=== PATIENT | female | born 1990 | race Caucasian/White ===

== ENCOUNTER → 2016-11-22 | Outpatient (REF) | payer OTHER ==
[~2016-11-22] MED LIST: ACET50TA PO; IBUP80TA PO; SUBUTEX
== END ==
LOC: M LAB REF 16:49
PROVIDERS: ATTEND Specialist
DX: Z34.81 Encounter for supervision of other normal pregnancy, first trimester (principal)

== ENCOUNTER → 2016-12-21 | Outpatient (REF) | payer OTHER | LOC: M LAB REF 17:03 | PROVIDERS: ATTEND Advanced Practice Midwife | DX: Z34.82 Encounter for supervision of other normal pregnancy, second trimester (principal); Z36 Encounter for antenatal screening of mother; Z3A.00 Weeks of gestation of pregnancy not specified ==

== ENCOUNTER → 2017-01-31 | Outpatient (CLI) | payer BC, MEDICAID ==
--- NOTE | 2017-02-01 05:13 | REP ---
Clinical: Anatomical evaluation. Comparison: None . Findings: Examination demonstrates a single live intrauterine in breech presentation. motion is identified by technologist. Placenta is noted anteriorly and grade 0 without evidence for placenta previa or abruption. Amniotic fluid volume is normal. Cervix measures 3.2 cm in length and appears closed. No evidence for nuchal cord. Gestational age by LMP 20 weeks 3 days with BRITT 06/17/2017 . Gestational age by current measurements 20 weeks 2 days with BRITT 06/18/2017 . FHR equals 141 beats per minute. BPD 4.7 cm 20 weeks 1 day HC 17.9 cm 20 weeks 2 days AC 15.3 cm 20 weeks 4 days FL 3.4 cm 20 weeks 6 days HL 3.1 cm 20 weeks 2 days HC/AC ratio 1.17 Estimated weight 367 grams ( 54th percentile). Anatomical assessment demonstrates normal structures including cranium, choroid plexus, cavum, cerebellum/posterior fossa, lungs, diaphragm, stomach, cord insertion/three-vessel cord, kidneys/bladder, spine, and extremities. Impression: 1. Single live intrauterine in breech presentation demonstrating appropriate interval growth. 2. Limited evaluation of the facial features and heart/ventricular outflow tracts. Anatomical assessment is otherwise normal and complete. Signed by Romeo Granados MD 02/01/2017 05:04 A
== END ==
LOC: M RAD 11:31
PROVIDERS: ATTEND Specialist
DX: O32.1XX0 Maternal care for breech presentation, not applicable or unspecified (principal); Z36 Encounter for antenatal screening of mother; Z3A.20 20 weeks gestation of pregnancy

== ENCOUNTER → 2017-03-15 | Outpatient (CLI) | payer BC, MEDICAID | LOC: M SMT 13:32 | PROVIDERS: ATTEND Specialist | DX: Z34.82 Encounter for supervision of other normal pregnancy, second trimester (principal); Z36 Encounter for antenatal screening of mother; Z3A.26 26 weeks gestation of pregnancy ==

== ENCOUNTER → 2017-03-26 | Outpatient (CLI) | payer BC, MEDICAID ==
[2017-03-26 15:25] LABS: MEAN CORPUSCULAR HEMOGLOBIN 32.4 pg (27.0-33.0); MEAN CORPUSCULAR VOLUME 90.2 fl (80.0-96.0); RED CELL DISTRIBUTION WIDTH 13.7 % (11.5-14.5); WHITE BLOOD COUNT 6.2 K/mm3 (4.0-10.0)
[2017-03-29 10:17] LABS: BUPRENORPHINE FREE SERUM 6 ng/mL (1-10); NORBUPRENORPHINE FREE SERUM 2 ng/mL (Not Estab.)
== END ==
LOC: M LAB 13:37
PROVIDERS: ATTEND Obstetrics & Gynecology
DX: Z34.82 Encounter for supervision of other normal pregnancy, second trimester (principal); F11.20 Opioid dependence, uncomplicated
CPT/HCPCS: 36415; 80306; 82950; 85027; 86850; 86900; 86901; G0480

== ENCOUNTER → 2017-05-25 | Outpatient (REF) | payer BC, MEDICAID ==
[~2017-05-25] MED LIST changes: +PRENTAB9 PO; +SUBUTEX PO; +TUMS500C PO
== END ==
LOC: M LAB REF 13:19
PROVIDERS: ATTEND Advanced Practice Midwife
DX: Z34.83 Encounter for supervision of other normal pregnancy, third trimester (principal); Z36 Encounter for antenatal screening of mother; Z3A.00 Weeks of gestation of pregnancy not specified

== ENCOUNTER → 2017-06-12 | Outpatient (CLI) | payer BC, MEDICAID ==
--- NOTE | 2017-06-12 16:04 | REP ---
Clinical: Size discrepancy for growth re-evaluation. Comparison: 03/15/2017 . Findings: Examination demonstrates a single live intrauterine in cephalic presentation. motion is identified by technologist. Placenta is noted anteriorly and grade one without evidence for placenta previa or abruption. Amniotic fluid volume is normal. No evidence for nuchal cord. Gestational age by LMP 39 weeks 2 days with BRITT 06/17/2017 . Gestational age by current measurements 37 weeks 1 day with BRITT 07/02/2017 . FHR equals 124 beats per minute. BPD 9.0 36 weeks 2 days HC 33.7 38 weeks 4 days AC 34.3 38 weeks 2 days FL 7.2 36 weeks 6 days HC/AC ratio 0.98 Estimated weight 3292 grams ( 39th percentile). Impression: 1. Single live advanced gestation in cephalic presentation. Biometrical measurements suggest mildly decreased growth although estimated weight remains within normal range. 2. Amniotic fluid index within normal limits. Signed by Romeo Granados MD 06/12/2017 03:55 P
== END ==
LOC: M SMT 15:04
PROVIDERS: ATTEND Advanced Practice Midwife
DX: Z36 Encounter for antenatal screening of mother (principal); Z3A.37 37 weeks gestation of pregnancy

== ENCOUNTER 2017-06-25 14:53 | Inpatient (IN) | payer BC, MEDICAID ==
[~2017-06-25] VITALS: Ht 162.6 cm; Wt 58.2 kg
[~2017-06-25 14:53] MED LIST changes: -PRENTAB9 PO; -SUBUTEX PO; -TUMS500C PO
[2017-06-25 15:33] VITALS: BP 121/67
[2017-06-25 16:25] LABS: MEAN CORPUSCULAR HEMOGLOBIN 31.2 pg (27.0-33.0); MEAN CORPUSCULAR HGB CONC 35.4 g/dl (32.0-36.5); MEAN CORPUSCULAR VOLUME 87.9 fl (80.0-96.0); RED CELL DISTRIBUTION WIDTH 13.9 % (11.5-14.5); WHITE BLOOD COUNT 7.4 10^3/uL (4.0-10.0)
[2017-06-25] MEDS ORDERED: PRENTAB9 PO (16:38)
[2017-06-25] MEDS ORDERED: TUMS500C PO (16:38)
[2017-06-25] MEDS ORDERED: SUBUTEX PO (16:38)
[2017-06-25 17:32] VITALS: BP 108/67
[2017-06-25] MEDS ORDERED: LACTATED RINGER'S 1000 ML IV STA (18:01)
[2017-06-25] MEDS ORDERED: miSOPROStol 50 MCG 1/2 TAB (S0191) SL ONE ×2 (18:15→20:45)
[2017-06-25] MEDS: LR 1,000 ML IV SCH (18:51)
[2017-06-25 19:39] VITALS: BP 110/67
[2017-06-25] MEDS: BUPRENORPHINE 8MG TAB (PATIENT'S OWN MED) PO SCH (20:27)
[2017-06-25 20:34] VITALS: BP 119/68
[2017-06-25 21:42] VITALS: BP 107/58
[2017-06-25 22:07] VITALS: BP 104/56
[2017-06-26] VITALS (37 sets, daily range): BP systolic 97–143; BP diastolic 55–77
[2017-06-26] MEDS ORDERED: PROMETHAZINE INJ 25 MG/ML VIAL (J2550) IV ONE (03:15)
[2017-06-26] MEDS ORDERED: OXYTOCIN DRIP 30 UNITS in APPROPRIATE DILUENT 1 EA IV SCH ×2 (03:15→12:36)
[2017-06-26] MEDS ORDERED: BUTORPHANOL 2 MG/ML INJ (J0595) IV ONE (03:15)
[2017-06-26] MEDS: LR 1,000 ML IV SCH ×2 (03:17→09:07)
[2017-06-26] MEDS ORDERED: FENTANYL 2MCG/ML ROPIVACAINE 0.2% IN 0.9% NACL 200ML IVBAG As Ordered ONE (07:52)
[2017-06-26] MEDS: BUPRENORPHINE 8MG TAB (PATIENT'S OWN MED) PO SCH (08:50)
[2017-06-26] MEDS ORDERED: FENTANYL/ROPIVACAINE/NACL BAG 200 ML EPIDURAL SCH (09:00)
[2017-06-26] MEDS ORDERED: ePHEDrine SULFATE 25 MG/5 ML(5MG/ML) SYRINGE IV PRN (09:00)
[2017-06-26] MEDS ORDERED: NALOXONE INJ 0.4 MG/1 ML VIAL (J2310) IV PRN (09:00)
[2017-06-26] MEDS ORDERED: LACTATED RINGER'S 1000 ML IV PRN (09:00)
[2017-06-26] MEDS ORDERED: diphenhydrAMINE INJ 50MG/ML VIAL (J1200) IV PRN (09:00)
[2017-06-26] MEDS ORDERED: ONDANSETRON 4MG/2ML VIAL (J2405) IV PRN (09:00)
[2017-06-26] MEDS ORDERED: EPIDURAL/PCA KEYS XX PRN (09:00)
[2017-06-26] MEDS ORDERED: INFLUENZA QUADRIVALENT PF VACCINE 0.5ML SYRINGE (90686) IM ONE (09:00)
[2017-06-26] MEDS ORDERED: EPIDURAL COMMENT XX SCH (09:00)
[2017-06-26] MEDS: PRENATAL VITAMINS CHEWABLE TABLET PO SCH (09:00)
[2017-06-26] MEDS ORDERED: REFRIGERATOR IV KEYS XX PRN (09:00)
[2017-06-26] MEDS ORDERED: MOM 30ML SUSPENSION UDC PO PRN (12:45)
[2017-06-26] MEDS ORDERED: METHYLERGONOVINE MALEATE 0.2 MG TAB PO PRN (12:45)
[2017-06-26] MEDS ORDERED: RHOGAM 300 MCG (1500 IU) INJ (J2790) IM SCH (12:45)
[2017-06-26] MEDS ORDERED: IBUPROFEN 800 MG TAB PO PRN (12:45)
[2017-06-26] MEDS ORDERED: DIBUCAINE 1% OINTMENT 30GM TOP PRN (12:45)
[2017-06-26] MEDS ORDERED: DOCUSATE SODIUM 100 MG CAP PO PRN (12:45)
[2017-06-26] MEDS ORDERED: ACETAMINOPHEN 500 MG TAB PO PRN (12:45)
[2017-06-26] MEDS ORDERED: ANUSOL HC CREAM 30GM TOP PRN (12:45)
[2017-06-26] MEDS ORDERED: MEASLES,MUMPS,RUBELLA VACCINE INJ (MMR-II) (90707) SC SCH (12:45)
[2017-06-26 12:52] LABS: CORD GAS ABE A -1.4; CORD GAS ABE V -1.4; CORD GAS HCO3 A 27.2 MEQ/L; CORD GAS HCO3 V 25.4 MEQ/L; CORD GAS O2 SAT A 27.2 %; CORD GAS O2 SAT V 49.5 %; CORD GAS PCO2 A 62.2 mmHg; CORD GAS PCO2 V 50.4 mmHg; CORD GAS PH A 7.258 UNITS; CORD GAS PH V 7.321 UNITS; CORD GAS PO2 A 15.4 mmHg; CORD GAS PO2 V 21.4 mmHg; CORD GAS SBC A 21.6 MEQ/L; CORD GAS SBC V 22.1 MEQ/L; CORD GAS TCO2 A 29.1 MEQ/L
--- NOTE | 2017-06-26 16:24 | DN ---
DATE: 06/26/2017 TIME OF : 1209 GENDER: Female. SCORES: 9 and 9. WEIGHT: 7 pounds 14 ounces, 3570 grams. LACERATIONS: None. ESTIMATED BLOOD LOSS: 300 mL. ANESTHESIA: Epidural. COUNTS: Five laparotomy sponges accounted for prior to and after delivery. Two sharps removed from the delivery field. Cord gas is 7.25, 7.32 with base excesses of -1.4 and -1.4, respectively. DELIVERY NOTE: On 06/26/2017 at 12:09 Ms. Garner, a 26-year-old 2, now para 2 had a spontaneous vaginal delivery of a live-born female infant. scores were 9 and 9. Weight was 3570 grams or 7 pounds 14 ounces. Head was delivered right occiput anterior (VIKAS) over an intact perineum. This was followed by delivery of the left anterior shoulder, right posterior shoulder, and corpus. Infant was handed to mother with a good cry. Cord was clamped times two and was cut by the father of the baby under my direction. Cord gases and cord blood were obtained. Placenta was then drained and delivered grossly intact. A premix bag of 500 mL of normal saline with 30 units of Pitocin was bolused along with uterine massage until the uterus was firm. On inspection, cervix, vagina, and perineum were grossly intact and hemostatic. Mother and baby are recovering in stable condition. The couple has decided to name their daughter Adelaida.
[2017-06-26] MEDS: BUPRENORPHINE 8MG TAB PO SCH (20:24)
[2017-06-27 05:46] VITALS: BP 110/71
[2017-06-27] MEDS: BUPRENORPHINE 8MG TAB PO SCH ×2 (09:00→21:00)
[2017-06-27] MEDS: PRENATAL VITAMINS CHEWABLE TABLET PO SCH (09:00)
[2017-06-27 18:00] VITALS: BP 110/62
[2017-06-28 06:00] VITALS: BP 112/70
[2017-06-28] MEDS: PRENATAL VITAMINS CHEWABLE TABLET PO SCH (08:08)
[2017-06-28] MEDS ORDERED: ACET50TA PO (09:07)
== END 2017-06-28 11:00 | disposition home or self-care (01) | DRG 560 ==
LOC: M LDI 14:53 → M OBS 06-26 14:51
PROVIDERS: ADMIT Obstetrics & Gynecology; ATTEND Obstetrics & Gynecology
PROC: 3E033VJ Introduction of Other Hormone into Peripheral Vein, Percutaneous Approach (ICD-10-PCS; 2017-06-25)
PROC: 10E0XZZ Delivery of Products of Conception, External Approach (ICD-10-PCS; principal; 2017-06-26)
DX: O48.0 Post-term pregnancy (principal); F17.200 Nicotine dependence, unspecified, uncomplicated; Z37.0 Single live birth; Z3A.41 41 weeks gestation of pregnancy; O99.334 Smoking (tobacco) complicating childbirth

== ENCOUNTER 2019-01-28 10:50 | Emergency (ER) | payer BC, MEDICAID, OTHER ==
[~2019-01-28] VITALS: Ht 162.6 cm; Wt 50.2 kg
[~2019-01-28 10:50] MED LIST changes: -ACET50TA PO; +MAPA500T17 PO; +MAPA500T2 PO; +PRENTAB9 PO; +SUBUTEX PO; +TUMS500C PO
[2019-01-28] MEDS ORDERED: IBUP-1022 PO (10:58)
[2019-01-28 12:19] LABS: BASO # 0.1 10^3/uL (0.0-0.2); BASO % 0.8 % (0.0-1.0); EOS % 0.5 % (0.0-3.0); HEMOGLOBIN 13.9 g/dl (12.0-15.5); LYMPH # 1.2 10^3/uL (1.5-6.5); MEAN CORPUSCULAR HGB CONC 34.8 g/dl (32.0-36.5); MEAN CORPUSCULAR VOLUME 86.2 fl (80.0-96.0); MONO # 0.3 10^3/uL (0.0-0.8); MONO % 5.5 % (0.0-5.0); NEUTROPHILS # 4.3 10^3/uL (1.8-7.7); NEUTROPHILS % 72.9 % (36.0-66.0); PLATELET COUNT, AUTOMATED 281 10^3/uL (150-450); RED BLOOD COUNT 4.64 10^6/uL (4.00-5.40)
[2019-01-28 12:58] LABS: ALBUMIN 3.9 GM/DL (3.2-5.2); ALT/SGPT 35 U/L (12-78); BILIRUBIN,DIRECT 0.1 MG/DL (0.0-0.2); BILIRUBIN,TOTAL 0.6 MG/DL (0.2-1.0); BLOOD UREA NITROGEN 11 MG/DL (7-18); CALCIUM LEVEL 8.8 MG/DL (8.5-10.1); CARBON DIOXIDE LEVEL 22 MEQ/L (21-32); CHLORIDE LEVEL 106 MEQ/L (98-107); CREATININE FOR GFR 0.77 MG/DL (0.55-1.30); GLOMERULAR FILTRATION RATE > 60.0 (>60); GLUCOSE, FASTING 91 MG/DL (70-100); POTASSIUM SERUM 3.8 MEQ/L (3.5-5.1); SODIUM LEVEL 136 MEQ/L (136-145); TOTAL PROTEIN 7.8 GM/DL (6.4-8.2)
[2019-01-28] MEDS ORDERED: CLEO300C2 PO (13:16)
[2019-01-28] MEDS ORDERED: CVS1CAP2 PO (13:16)
[2019-01-28] MEDS ORDERED: MACR100C43 PO (13:16)
[2019-01-28 13:27] VITALS: BP 103/69
== END 2019-01-28 13:28 | disposition home or self-care (01) ==
LOC: M ED 10:50
DX: K04.7 Periapical abscess without sinus (principal); N39.0 Urinary tract infection, site not specified; R22.0 Localized swelling, mass and lump, head; F19.10 Other psychoactive substance abuse, uncomplicated; F17.210 Nicotine dependence, cigarettes, uncomplicated; Z88.0 Allergy status to penicillin; Z79.899 Other long term (current) drug therapy

== ENCOUNTER 2020-04-21 17:16 | Emergency (ER) | payer OTHER ==
[~2020-04-21] VITALS: Ht 162.6 cm; Wt 55.0 kg
[~2020-04-21 17:16] MED LIST changes: +CLEO300C2 PO; +CVS1CAP2 PO; +IBUP-1022 PO; +MACR100C43 PO
[2020-04-21 17:17] VITALS: BP 126/77
[2020-04-21] MEDS ORDERED: CLEO300C2 PO (18:00)
[2020-04-21] MEDS ORDERED: LIDOCAINE VISCOUS 2% SOLN 15ML UDC SSP ONE (18:00)
[2020-04-21] MEDS ORDERED: CLINDAMYCIN 150MG CAPSULE PO ONE (18:00)
[2020-04-21] MEDS ORDERED: LIDO2SOL17 PO (18:01)
== END 2020-04-21 18:08 | disposition home or self-care (01) ==
LOC: M ED 17:16
DX: K04.7 Periapical abscess without sinus (principal); K02.9 Dental caries, unspecified; Z88.0 Allergy status to penicillin; Z79.891 Long term (current) use of opiate analgesic

== ENCOUNTER 2020-11-28 19:41 | Emergency (ER) | payer OTHER ==
[~2020-11-28] VITALS: Ht 162.6 cm; Wt 59.7 kg
[~2020-11-28 19:41] MED LIST changes: +LIDO2SOL17 PO
[2020-11-28] MEDS ORDERED: LEXA1TAB2 PO (19:50)
[2020-11-28] MEDS ORDERED: DOXYCYCLINE HYCLATE 100MG TABLET PO ONE (20:20)
--- NOTE | 2020-11-28 21:02 | REPVR ---
PROCEDURE INFORMATION: Exam: US Right Non-Vascular Joint or Other Extremity Structure, Limited Lower Extremity Exam date and time: 11/28/2020 8:55 PM Age: 30 years old Clinical indication: Pain; Hip; Right; Additional info: Examine profundity of skin abscess TECHNIQUE: Imaging protocol: Right US joint or other nonvascular extremity structure or structures. Real-time ultrasound with image documentation. Limited study. Exam focused on the lower extremity in the region of clinical interest. COMPARISON: No relevant prior studies available. FINDINGS: Soft tissues: Mild induration.. No loculated collections. IMPRESSION: Mild induration suggests local cellulitis. No abscess.. Electronically signed by: Radha Pandey On 11/28/2020 21:03:20 PM
[2020-11-28] MEDS ORDERED: KETOROLAC 60MG 2ML VIAL IM ONE (21:50)
[2020-11-28] MEDS ORDERED: LIDOCAINE 2% W/EPINEPHRINE 20ML VIAL **PRES FREE INJ ONE (22:15)
[2020-11-28 23:10] LABS: BASO % 0.7 % (0.0-1.0); EOS # 0.2 10^3/uL (0.0-0.5); EOS % 2.6 % (0.0-3.0); HEMATOCRIT 34.1 % (36.0-47.0); HEMOGLOBIN 11.6 g/dl (12.0-15.5); LYMPH # 1.5 10^3/uL (1.5-5.0); LYMPH % 26.1 % (24.0-44.0); MEAN CORPUSCULAR HEMOGLOBIN 28.7 pg (27.0-33.0); MEAN CORPUSCULAR VOLUME 84.4 fl (80.0-96.0); MONO # 0.4 10^3/uL (0.0-0.8); MONO % 6.7 % (2.0-8.0); NEUTROPHILS # 3.6 10^3/uL (1.5-8.5); NEUTROPHILS % 63.7 % (36.0-66.0); PLATELET COUNT, AUTOMATED 247 10^3/uL (150-450); RED BLOOD COUNT 4.04 10^6/uL (4.00-5.40); WHITE BLOOD COUNT 5.7 10^3/uL (4.0-10.0)
[2020-11-28 23:20] LABS: INR 1.11; PROTHROMBIN TIME 14.5 SECONDS (12.5-14.3)
[2020-11-28] MEDS ORDERED: BACTRIM 160MG/800MG DS TAB PO ONE (23:20)
[2020-11-28 23:21] LABS: PARTIAL THROMBOPLASTIN TIME 35.4 SECONDS (24.2-38.5)
[2020-11-28 23:33] LABS: ERYTHROCYTE SEDIMENTATION RATE 39 mm/hr (0-20)
[2020-11-28 23:39] LABS: ALBUMIN 3.7 GM/DL (3.2-5.2); ALT/SGPT 16 U/L (12-78); BILIRUBIN,DIRECT 0.1 MG/DL (0.0-0.2); BILIRUBIN,TOTAL 0.3 MG/DL (0.2-1.0); BLOOD UREA NITROGEN 13 MG/DL (7-18); C REACTIVE PROTEIN QUANTITATIV 0.75 MG/DL (0.00-0.30); CALCIUM LEVEL 8.9 MG/DL (8.5-10.1); CARBON DIOXIDE LEVEL 27 MEQ/L (21-32); CHLORIDE LEVEL 105 MEQ/L (98-107); CREATININE FOR GFR 0.72 MG/DL (0.55-1.30); GLOMERULAR FILTRATION RATE > 60.0 (>60); GLUCOSE, FASTING 88 MG/DL (70-100); POTASSIUM SERUM 3.5 MEQ/L (3.5-5.1); SODIUM LEVEL 137 MEQ/L (136-145); TOTAL PROTEIN 7.3 GM/DL (6.4-8.2)
[2020-11-28 23:40] LABS: HCG, SERUM QUALITATIVE NEGATIVE (NEGATIVE)
[2020-11-28] MEDS ORDERED: DOXY100C37 PO (23:42)
[2020-11-28] MEDS ORDERED: SULF1TAB93 PO (23:44)
[2020-11-29 00:01] VITALS: BP 112/71
== END 2020-11-29 00:02 | disposition home or self-care (01) ==
LOC: M ED 19:41
DX: L03.311 Cellulitis of abdominal wall (principal); Z79.899 Other long term (current) drug therapy; Z88.0 Allergy status to penicillin
CPT/HCPCS: 76882; 80048; 80076; 84703; 85025; 85610; 85652; 85730; 86140; 87040; 99283; J1885

== ENCOUNTER 2024-02-13 17:40 | Emergency (ER) | payer OTHER ==
[~2024-02-13 17:40] MED LIST changes: +BACTDSTA PO; +DOXY-323 PO; +LEXA1TAB2 PO; +LIDO15SO8 PO; -LIDO2SOL17 PO
== END 2024-02-13 23:47 | disposition left against medical advice (07) ==
LOC: M ED 17:40
DX: Z53.21 Procedure and treatment not carried out due to patient leaving prior to being seen by health care provider (principal)